=== PATIENT | female | born 1990 | race Caucasian/White ===

== ENCOUNTER 2019-06-20 21:22 | Emergency (ER) | payer MEDICAID ==
--- NOTE | 2019-06-20 21:58 | Emergency Department Record ---
History of Present Illness - General Chief complaint: ENT Stated complaint: SORE THROAT Time Seen by Provider: 06/20/19 21:44 Source: Patient Mode of Arrival: Ambulatory - History of Present Illness Initial comments: The patient states that 24 hours ago she began feeling like she is coming down with something. She feels achy all over her body, has a low grade fever, sore throat, dry cough and nasal congestion. She works in a daycare. She is 13 weeks , LMP 03-19-19. She has seen her OB, is planning on delivery at [facility]. She saw her OB earlier this week who told her she has a vaginal yeast infection and she now is [id number] monistat vaginal cream. MD complaint: Sore throat, Other (body aches, low grade fever) Onset/Timin -: Days(s) Location: R ear, L ear, Throat Improves with: NSAID Worsens with: Swallowing Associated Symptoms: Cough - Related Data Home Medications Medication Instructions Recorded Confirmed Last Taken Bupropion HCl [Wellbutrin Xl] 150 mg PO DAILY 06/20/19 06/20/19 06/20/19 Cyclobenzaprine HCl [Flexeril] 10 mg PO ASDIR 06/20/19 06/20/19 06/17/19 Levothyroxine Sodium [Synthroid] 50 mcg PO DAILY 06/20/19 06/20/19 06/20/19 Prenat 115/Iron Fum/Folic/Dss 1 tab PO DAILY 06/20/19 06/20/19 06/20/19 [ 19 Tablet] Previous Rx's Medication Instructions Recorded Cephalexin [Keflex] 500 mg PO QID #39 cap 06/20/19 Allergies Allergy/AdvReac Type Severity Reaction Status Date / Time No Known Drug Allergies Allergy Verified 06/20/19 21:33 Travel Screening - Travel/Exposure Within Last 30 Days Have you traveled within the last 30 days?: No - Travel/Exposure Within Last Year Have you traveled outside the [place] in the last year?: No - Additonal Travel Details Have you been exposed to anyone with a communicable illness?: No - Travel Symptoms Symptom Screening: None Review of Systems Reviewed: No additional complaints except as noted below Constitutional: Reports: As per HPI. Denies: Chills, Fever, Malaise, Night sweats, Weakness, Weight change Eyes: Reports: As per HPI. Denies: Eye discharge, Eye pain, Photophobia, Vision change ENT: Reports: As per HPI. Denies: Congestion, Dental pain, Ear pain, Epistaxis, Hearing loss, Throat pain Respiratory: Reports: As per HPI. Denies: Cough, Dyspnea, Hemoptysis, Stridor, Wheezes Cardiovascular: Reports: As per HPI. Denies: Arrhythmia, Chest pain, Dyspnea on exertion, Edema, Murmurs, Orthopnea, Palpitations, Paroxysmal nocturnal dyspnea, Rheumatic Fever, Syncope Endocrine: Reports: As per HPI. Denies: Fatigue, Heat or cold intolerance, Polydipsia, Polyuria Gastrointestinal: Reports: As per HPI. Denies: Abdominal pain, Constipation, Diarrhea, Hematemesis, Hematochezia, Melena, Nausea, Vomiting Genitourinary: Reports: As per HPI. Denies: Abnormal menses, Discharge, Dyspareunia, Dysuria, Frequency, Hematuria, Incontinence, Retention, Urgency Musculoskeletal: Reports: As per HPI. Denies: Arthralgia, Back pain, Gout, Joint swelling, Myalgia, Neck pain Skin: Reports: As per HPI. Denies: Bruising, Change in color, Change in hair/nails, Lesions, Pruritus, Rash Neurological: Reports: As per HPI. Denies: Abnormal gait, Confusion, Headache, Numbness, Paresthesias, Seizure, Tingling, Tremors, Vertigo, Weakness Psychiatric: Reports: As per HPI. Denies: Anxiety, Auditory hallucinations, Depression, Homicidal thoughts, Suicidal thoughts, Visual hallucinations Hematological/Lymphatic: Reports: As per HPI. Denies: Anemia, Blood Clots, Easy bleeding, Easy bruising, Swollen glands Past Medical History - SOCIAL HISTORY Smoking Status: Never smoker Alcohol Use: None Drug Use: None - RESPIRATORY Hx Respiratory Disorders: No - CARDIOVASCULAR Hx Cardio Disorders: No - NEURO Hx Neuro Disorders: No - GI Hx GI Disorders: No - Hx Genitourinary Disorders: No - ENDOCRINE Hx Endocrine Disorders: Yes Hx Thyroid Disease: Yes - MUSCULOSKELETAL Hx Musculoskeletal Disorders: No - PSYCH Hx Psych Problems: No Family Medical History Any Significant Family History?: No Physical Exam - General General Appearance: Alert, Oriented x3, Cooperative, Mild distress (bundled up in warm clothes, position) - Head Head exam: Normal inspection - Eye Eye exam: Normal appearance, PERRL, EOMI. negative: Conjunctival injection, Nystagmus Pupils: Normal accommodation - ENT ENT exam: Normal exam, Mucous membranes moist, Normal external ear exam, Normal orophraynx, TM's normal bilaterally Ear exam: Normal external inspection. negative: External canal tenderness Nasal Exam: Normal inspection. negative: Discharge, Sinus tenderness Mouth exam: Normal external inspection, Tongue normal Teeth exam: Normal inspection. negative: Dental caries Throat exam: Normal inspection, Tonsillar erythema. negative: Tonsillomegaly, Tonsillar exudate - Neck Neck exam: Normal inspection, Full ROM. negative: Lymphadenopathy, Meningismus, Tenderness - Respiratory Respiratory exam: Normal lung sounds bilaterally. negative: Respiratory distress - Cardiovascular Cardiovascular Exam: Normal rhythm, Normal heart sounds, Tachycardia - GI/Abdominal GI/Abdominal exam: Soft, Normal bowel sounds. negative: Tenderness - Rectal Rectal exam: Deferred - exam: Deferred - Extremities Extremities exam: Normal inspection, Full ROM, Normal capillary refill. negative: Calf tenderness, Pedal edema, Tenderness - Back Back exam: Reports: Normal inspection, Full ROM. Denies: CVA tenderness (R), CVA tenderness (L), Muscle spasm, Rash noted, Tenderness - Neurological Neurological exam: Alert, CN II-XII intact, Normal gait, Oriented X3, Reflexes normal. negative: Motor sensory deficit - Psychiatric Psychiatric exam: Normal affect, Normal mood - Skin Skin exam: Dry, Intact, Normal color, Warm. negative: Rash Course Vital Signs 06/20/19 21:26 Temperature 99.9 F H Pulse Rate 114 H Respiratory 20 Rate Blood Pressure 118/77 Pulse Ox 100 Medical Decision Making - Management Options MDM Management: No Additional Work-up Planned - Data Complexity MDM Data: Labs Ordered and/or Reviewed (UA: 1+ bacteria; UDS+ marijuana) - Lab Data Result diagrams: 06/20/19 22:05 06/20/19 22:05 Disposition Disposition: Discharge Clinical Impression: Asymptomatic bacteriuria during , Viral syndrome Qualifiers: Weeks of gestation: 13 weeks Qualified Code(s): Z3A.13 - 13 weeks gestation of Disposition: Home, Self-Care Condition: (1) Good Instructions: Urinary Tract Infection in (ED) Additional Instructions: Take keflex as directed until gone. tylenol 1000 every 4 hours as needed for fevers or body aches. Increase fluid intake. Off work tomorrow. Recheck UA 10 days to be sure it has cleared. Prescriptions: Cephalexin [Keflex] 500 mg PO QID #39 cap Quality - Quality Measures Quality Measures: N/A - Blood Pressure Screening Does Patient Have Any of the Following: No Blood Pressure Classification: Normal BP Reading Systolic Measurement: 118 Diastolic Measurement: 77 Screening for High Blood Pressure: < Normal BP, F/U Not Required > [G8783]
[2019-06-20 21:59] LABS: URINE APPEARANCE CLEAR; URINE BILIRUBIN NEGATIVE (NEGATIVE); URINE BLOOD NEGATIVE (NEGATIVE); URINE COLOR YELLOW; URINE GLUCOSE (UA) NEGATIVE (NEGATIVE); URINE KETONE NEGATIVE (NEGATIVE); URINE NITRITE NEGATIVE (NEGATIVE); URINE PROTEIN NEGATIVE (NEGATIVE); URINE UROBILINOGEN 0.2 E.U./dL (0.20 - 1.00)
[2019-06-20 22:02] LABS: AMPHETAMINE SCREEN URINE NOT DETECTED; BARBITURATE SCREEN URINE NOT DETECTED; BENZODIAZEPINE SCREEN URINE NOT DETECTED; COCAINE SCREEN URINE NOT DETECTED; METHADONE SCREEN URINE NOT DETECTED; METHAMPHETAMINE SCREEN NOT DETECTED; OPIATE SCREEN URINE NOT DETECTED; OXYCODONE SCREEN URINE NOT DETECTED; PHENCYCLIDINE SCREEN URINE NOT DETECTED; PROPOXYPHENE SCREEN URINE NOT DETECTED; THC SCREEN URINE DETECTED; TRICYCLIC ANTIDEPRESSANT SCRN NOT DETECTED
[2019-06-20] MEDS ORDERED: 0.9 % SODIUM CHLORIDE 1,000 ML BAG IV ONE (22:02)
[2019-06-20 22:11] LABS: URINE BACTERIA 1+; URINE RBC 0 - 2 (NONE SEEN)
[2019-06-20 22:16] LABS: HEMOGLOBIN 11.4 gm/dl (11.6-16.0); MEAN CELL VOLUME 89.3 fl (81-97); MEAN CORPUSCULAR HGB CONC 32.6 g/dl (32-36); MEAN PLATELET VOLUME 9.5 fl (7.4-10.4); PLATELET COUNT 298 K/uL (130-400); RED BLOOD COUNT 3.92 M/uL (3.80-5.40); RED CELL DISTRIBUTION WIDTH 13.7 % (11.5-14.5); WHITE BLOOD COUNT W/O DIFF 12.4 K/uL (4.2-12.2)
[2019-06-20 22:29] LABS: PLATELET ESTIMATE NORMAL (NORMAL)
[2019-06-20 22:36] LABS: BLOOD UREA NITROGEN 10 mg/dL (6-20); CREATININE 0.7 mg/dL (0.5-0.9); EST GLOMERULAR FILTRATION RATE > 60 mL/min
[2019-06-20 22:37] LABS: TOTAL PROTEIN 6.7 g/dL (6.6-8.7)
[2019-06-20 22:39] LABS: GLUCOSE,RANDOM 89 mg/dL (74-109)
[2019-06-20 22:41] LABS: ALKALINE PHOSPHATASE 59 U/L (35-104); ALT/SGPT 8 U/L (<33); AST/SGOT 13 U/L (10.0-35.0)
[2019-06-20 22:45] LABS: ALBUMIN 4.5 g/dL (4.0-5.0)
[2019-06-20 22:57] LABS: URINE LEUKOCYTE ESTERASE NEGATIVE (NEGATIVE)
[2019-06-20 22:58] LABS: URINE EPITHELIAL CELLS 0 - 2 (FEW); URINE WBC 0 - 2 (0-2/hpf)
[2019-06-20] MEDS ORDERED: CEPHALEXIN 500 MG CAPSULE PO STA (23:11)
== END 2019-06-20 23:24 | disposition home or self-care (01) ==
LOC: ER 21:22
DX: O98.511 Other viral diseases complicating pregnancy, first trimester (principal); R82.71 Bacteriuria; B34.9 Viral infection, unspecified; B37.3 Candidiasis of vulva and vagina; R05 Cough; J02.9 Acute pharyngitis, unspecified; Z3A.13 13 weeks gestation of pregnancy
CPT/HCPCS: 80053; 80305; 81001; 84443; 85027; 87880; 99284; J7030